=== PATIENT | male | born 1950 | race Caucasian/White ===

== ENCOUNTER 2016-11-07 09:47 | Emergency (ER) | payer BC ==
[~2016-11-07] VITALS: Ht 167.6 cm; Wt 100.7 kg
[~2016-11-07 09:47] MED LIST: ASPI81TA28 PO; ATOR-26 PO; COLC0.6T54 PO; NEBI10TA2 PO; PRT/40 PO; TICA1TAB PO
[2016-11-07 10:10] VITALS: TEMP 36.8; Ht 167.6 cm; Wt 100.7 kg
--- NOTE | 2016-11-07 11:43 | DIAGNOSTIC IMAGING REPORT ---
LEFT FOOT 3 VIEWS CLINICAL HISTORY: Left foot pain. FINDINGS: 3 views of left foot are compared to study dated 04/26/2015. The skeletal structures are osteopenic. There is been interval amputation of the first toe at the level of the metatarsophalangeal joint. No acute fracture is seen. There is mild sclerosis with no cortical destruction or periostitis identified along the resection margin the first metatarsal head. There is a bony erosion identified in the fifth metatarsal head which is new from 04/26/2015. There is mild degenerative spurring of the dorsal aspect of the tarsal bones. A small plantar calcaneal enthesophyte is observed. Soft tissue swelling is suggested in the forefoot. IMPRESSION: 1. There are changes from interval amputation of the first toe at the level of the first metatarsophalangeal joint as compared 04/26/2015. 2. No acute fracture is identified. No acute bony abnormality is clearly seen. 3. There is an age indeterminant erosion identified in the fifth metatarsal head which is new from 04/26/2015. This is likely on a degenerative basis. Clinical correlation will be required. 4. Mild soft tissue edema is noted in the forefoot. Correlate clinically for evidence of cellulitis. Electronically signed by: Shai Childress M.D. 11/07/2016 11:41 AM Dictated Date/Time: 11/07/2016 11:38 AM
[2016-11-07] MEDS ORDERED: CEPH500C PO (12:08)
[2016-11-07 12:27] VITALS: BP 120/76; PULSE 70; O2SAT 99
--- NOTE | 2016-11-07 13:07 | EMERGENCY ROOM VISIT NOTE ---
History First contact with patient: 10:43 Chief Complaint: FOOT PAIN Stated Complaint: LEFT FOOT HURTS History of Present Illness The patient is a 66 year old male who presents to the Emergency Room with complaints of left foot pain. The patient reports that he has noticed some swelling and redness over the top of his foot over the past week. The patient reports that he was also recently paining without his shoes on, and noticed progressively worsening pain. The patient typically wears orthotics as well. 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 He also has a significant history of gout. Patient denies history of diabetes. The patient reports that his last surgery was performed by Dr. Roper, but intends to contact an ankle and foot doctor for further follow-up of his current condition. He denies any fevers or chills, or pain radiating into the leg region. He rates his discomfort a 7 out of 10. Review of Systems 10 system review was performed and was negative except for pertinent positives and negatives as indicated in history of present illness Past Medical/Surgical History Medical Problems: (1) Gout (2) Kidney stones Surgical Problems: (1) History of back surgery (2) History of shoulder surgery Family History FH: cancer FH: diabetes mellitus FH: hypertension FH: kidney disease FH: lung disease Heart disease Kidney disease Kidney stones Social History Smoking Status: Never Smoker Alcohol Use: none Drug Use: none Marital Status: Housing Status: lives with significant other Occupation Status: employed Current/Historical Medications Scheduled Aspirin (Aspirin Ec), 81 MG PO DAILY Atorvastatin (Lipitor), 40 MG PO QPM Cephalexin Monohydrate (Keflex), 500 MG PO QID Nebivolol Hcl (Bystolic), 10 MG PO DAILY Pantoprazole (Pantoprazole Sodium), 20 MG PO QAM Ticagrelor (Brilinta), 90 MG PO BID Scheduled PRN Colchicine (Colchicine), 0.6 MG PO TID PRN for PRN Allergies Coded Allergies: No Known Allergies (Unverified , 11/07/16) Physical Exam Vital Signs Date Time Temp Pulse Resp B/P Pulse Ox O2 Delivery O2 Flow Rate FiO2 11/07/16 12:27 70 16 120/76 99 11/07/16 10:10 36.8 68 18 124/88 99 Room Air Pain Rating (0-10): 5.0 Physical Exam CONSTITUTIONAL: Healthy and well nourished. Alert and oriented X 3 with positive affect. HEENT: Normocephalic, atraumatic. Pupils equal, round and reactive. NECK: Full active range of motion without discomfort. MUSCULOSKELETAL: His emanation of the left foot shows a nickel-sized area of erythema over the dorsal and medial tarsal bone region. The patient does not have any worsening pain with subtalar motion. Flexion and extension of the toes does not worsen his discomfort. The patient has a great toe amputation with good healing of the surgical incisions. Capillary refill of the remaining toes is less than 2 seconds. The patient has no tenderness to palpation about the ankle. INTEGUMENTARY: No rash or other significant dermatologic conditions noted. NEUROLOGIC: No focal neurologic deficits noted. Left foot and toes are otherwise sensory intact. Medical Decision & Procedures ER Provider Diagnostic Interpretation: My interpretation of left foot x-rays does not show any fractures or dislocations. Radiologist does question some lytic destruction of the fifth metatarsal head. Radiologist report is as follows: LEFT FOOT 3 VIEWS CLINICAL HISTORY: Left foot pain. FINDINGS: 3 views of left foot are compared to study dated 04/26/2015. The skeletal structures are osteopenic. There is been interval amputation of the first toe at the level of the metatarsophalangeal joint. No acute fracture is seen. There is mild sclerosis with no cortical destruction or periostitis identified along the resection margin the first metatarsal head. There is a bony erosion identified in the fifth metatarsal head which is new from 04/26/2015. There is mild degenerative spurring of the dorsal aspect of the tarsal bones. A small plantar calcaneal enthesophyte is observed. Soft tissue swelling is suggested in the forefoot. IMPRESSION: 1. There are changes from interval amputation of the first toe at the level of the first metatarsophalangeal joint as compared 04/26/2015. 2. No acute fracture is identified. No acute bony abnormality is clearly seen. 3. There is an age indeterminant erosion identified in the fifth metatarsal head which is new from 04/26/2015. This is likely on a degenerative basis. Clinical correlation will be required. 4. Mild soft tissue edema is noted in the forefoot. Correlate clinically for evidence of cellulitis. ED Course Patient history and physical exam were performed. Nurse's notes were reviewed. Vital signs were reviewed and were normal. X-rays of the left foot were normal except for some changes at the fifth metatarsal head. The patient reports that that abnormal finding is likely from the foot being clamped in surgery as he has had pain on the lateral aspect of the foot since the surgery. The patient was advised that the safest treatment would be with antibiotics in case this is a developing cellulitis. The patient was provided a prescription for Keflex. The patient was instructed to limit weightbearing, and elevate the foot for swelling and pain. Ibuprofen and Tylenol as needed for additional pain relief. The patient refused any prescription analgesics. He was instructed to seek further emergent reevaluation for any progressively worsening redness, swelling, pain, red streaks or fever. The patient was happy with plan of care, and voiced understanding of all discharge instructions. Medical Decision Impression Primary Impression: Cellulitis of left foot Departure Information Dispostion Home / Self-Care Prescriptions Cephalexin Monohydrate (Keflex) 500 Mg Cap 500 MG PO QID for 7 Days, #28 CAP Prov: Kenny Reddy PA 11/07/16 Forms HOME CARE DOCUMENTATION FORM, IMPORTANT VISIT INFORMATION Patient Instructions My [facility] Additional Instructions Finish all Keflex antibiotics as prescribed. Watch for any progressively worsening redness, swelling, pain, red streaks or fever. Follow-up with your ankle and foot doctor for further management.
== END 2016-11-07 12:28 | disposition home or self-care (01) ==
LOC: C.EDB 09:48 → C.EDD 12:28
DX: L03.116 Cellulitis of left lower limb (principal); M10.9 Gout, unspecified; Z80.9 Family history of malignant neoplasm, unspecified; Z83.3 Family history of diabetes mellitus; Z84.1 Family history of disorders of kidney and ureter; Z79.82 Long term (current) use of aspirin

== ENCOUNTER → 2018-05-10 | Outpatient (CLI) | payer OTHER ==
[~2018-05-10] MED LIST changes: +PANT40TA2 PO; -PRT/40 PO
[2018-05-10 14:29] LABS: ALKALINE PHOSPHATASE 85 U/L (45-117); ALT/SGPT 56 U/L (12-78); AST/SGOT 55 U/L (15-37); BLOOD UREA NITROGEN 17 mg/dl (7-18); CALCIUM 9.7 mg/dl (8.5-10.1); CARBON DIOXIDE 23 mmol/L (21-32); CHOLESTEROL 109 mg/dl (0-200); CREATININE 1.46 mg/dl (0.60-1.40); GLUCOSE 96 mg/dl (70-99); LDL CHOLESTEROL CALCULATED 57 mg/dl; POTASSIUM 4.4 mmol/L (3.5-5.1); SODIUM 137 mmol/L (136-145); TOTAL PROTEIN 8.3 gm/dl (6.4-8.2)
== END | disposition home or self-care (01) ==
LOC: C.LABPBG 07:38
PROVIDERS: ATTEND Neuromusculoskeletal Medicine & OMM
DX: I25.10 Atherosclerotic heart disease of native coronary artery without angina pectoris (principal); N18.3 Chronic kidney disease, stage 3 (moderate)